=== PATIENT | male | born 1950 | race Caucasian/White ===

== ENCOUNTER 2018-04-24 13:08 | Observation (INO) | payer MEDICARE, BC ==
--- NOTE | 2018-04-24 13:25 | EDM.PDOC ---
ED HPI GENERAL MEDICAL PROBLEM - General Stated Complaint: SOB Time Seen by Provider: 04/24/18 13:08 Source of Information: Reports: Patient, Family History Limitations: Reports: Respiratory Distress back Pain Score (Numeric/FACES): 4 - Related Data Allergies Allergy/AdvReac Type Severity Reaction Status Date / Time cephalexin Allergy Hives Verified 04/24/18 13:21 enoxaparin [From Lovenox] Allergy Hives Verified 04/24/18 13:21 Home Meds: Home Meds Carvedilol [Coreg] 6.25 mg PO DAILY 07/07/16 [History] Ferrous Sulfate 65 mg PO BIDMEALS 07/07/16 [History] Metolazone 5 mg PO DAILY PRN 07/07/16 [History] [place]-3/DHA/Epa/Fish Oil [Fish Oil Dr 500 mg Softgel] 2,000 mg PO BID 07/07/16 [ History] Omeprazole 20 mg PO DAILY 07/07/16 [History] Warfarin Sodium 7.5 mg PO MOWEFRSA 07/07/16 [History] Aspirin 81 mg PO DAILY 10/23/16 [History] Citalopram [Citalopram HBr] 40 mg PO DAILY 10/23/16 [History] Clorazepate Dipotassium [Tranxene T-Tab] 7.5 mg PO BID PRN 10/23/16 [History] Cyclobenzaprine [Flexeril] 10 mg PO BID PRN 10/23/16 [History] Ibuprofen 800 mg PO TID PRN 10/23/16 [History] Multivitamin/Iron/Folic Acid [Centrum Complete Multivit] 1 each PO DAILY [History] Vitamin B Complex [B Complex] 1 tab PO BID 10/23/16 [History] Warfarin [Coumadin] 10 mg PO SUTUTH 10/23/16 [History] buPROPion HCl [Bupropion HCl Sr] 150 mg PO BEDTIME 10/23/16 [History] Magnesium Oxide 400 mg PO BID #60 tablet 10/24/16 [Rx] Acetaminophen/oxyCODONE [Percocet 325-5 MG] 1 tab PO DAILY PRN 04/24/18 [History ] Albuterol Sulfate [Proventil Hfa] 2 puff IH Q4H PRN 04/24/18 [History] Carboxymethylcellulose Sodium [Refresh Tears] 1 drop EYEBOTH ASDIRECTED PRN [History] Carvedilol [Coreg] 12.5 mg PO BEDTIME 04/24/18 [History] Cholecalciferol (Vitamin D3) [Vitamin D3] 1,000 unit PO BID 04/24/18 [History] Fish Oil/DHA/EPA [Fish Oil 1,200 MG] 1,200 mg PO BID 04/24/18 [History] Fluticasone/Salmeterol [Advair 250-50 Diskus] 1 each IH BID 04/24/18 [History] Glucosamine/D3/Boswellia Margot [Osteo Bi-Flex Caplet] 1 tab PO BID 04/24/18 [ History] Losartan [Cozaar] 25 mg PO DAILY 04/24/18 [History] Naloxone HCl [Narcan] 4 mg FDIEL ASDIRECTED PRN 04/24/18 [History] Potassium Chloride [Klor-Con M20] 40 meq PO BID@,14 04/24/18 [History] Rosuvastatin [Crestor] 20 mg PO DAILY 04/24/18 [History] Spironolactone [Aldactone] 25 mg PO DAILY 04/24/18 [History] Torsemide [Demadex] 80 mg PO BID@,14 04/24/18 [History] buPROPion [Wellbutrin SR] 300 mg PO DAILY 04/24/18 [History] fentaNYL [Fentanyl] 25 mcg TD Q3D 04/24/18 [History] valACYclovir HCl [valACYclovir] 1 gm PO ASDIRECTED PRN 04/24/18 [History] Acetaminophen/oxyCODONE [Percocet 325-5 MG] 1 tab PO Q4H PRN tablet 04/25/18 [ Rx] Albuterol/Ipratropium [DuoNeb 3.0-0.5 MG/3 ML] 3 ml NEB Q6H neb 04/25/18 [Rx] Sodium Chloride 0.9% [Saline Flush] 10 ml FLUSH ASDIRECTED PRN syringe [Rx] methylPREDNISolone Sod Succ [Solu-MEDROL] 80 mg IVPUSH Q8H sdv 04/25/18 [Rx] Past Medical History HEENT History: Reports: Impaired Vision Cardiovascular History: Reports: Hypertension Respiratory History: Reports: Asthma Genitourinary History: Reports: Other (See Below) Other Genitourinary History: prostate problem Musculoskeletal History: Reports: Back Pain, Chronic Psychiatric History: Reports: Anxiety, Depression Oncologic (Cancer) History: Reports: Squamous Cell Carcinoma - Past Surgical History Cardiovascular Surgical History: Reports: Other (See Below) Social & Family History - Family History Family Medical History: Noncontributory - Caffeine Use Caffeine Use: Reports: Coffee, Soda, Tea EKG INTERPRETATION EKG Date: 04/24/18 Time: 13:25 Rhythm: Other (ventricular paced) Rate (Beats/Min): 62 [place]: LAD-Left [place] Deviation P-Wave: Absent Comparison: NA - No Prior EKG EKG Interpretation Comments: 100% paced rhythm Course - Vital Signs Last Recorded V/S: Last Vital Signs Temp 36.4 C 04/25/18 08:00 Pulse 66 04/25/18 08:00 Resp 20 04/25/18 08:00 BP 114/67 04/25/18 08:00 Pulse Ox 95 04/25/18 08:00 - Orders/Labs/Meds Labs: Laboratory Tests 04/24/18 04/24/18 04/24/18 Range/Units 13:47 13:47 13:47 WBC 8.3 (4.5-12.0) X10-3/uL RBC 4.48 (4.30-5.75) x10(6)uL Hgb 14.6 D (11.5-15.5) g/dL Hct 42.7 (30.0-51.3) % MCV 95.4 (80-96) fL MCH 32.5 (27.7-33.6) pg MCHC 34.1 (32.2-35.4) g/dL RDW 13.9 (11.5-15.5) % Plt Count 109 L (125-369) X10(3)uL MPV 12.0 H (7.4-10.4) fL Neut % (Auto) 65.1 (46-82) % Lymph % (Auto) 25.2 (13-37) % [place] % (Auto) 7.5 (4-12) % Eos % (Auto) 1 (1.0-5.0) % Baso % (Auto) 1 (0-2) % Neut # (Auto) 5.4 (1.6-8.3) # Lymph # (Auto) 2.1 (0.6-5.0) # [place] # (Auto) 0.6 (0.0-1.3) # Eos # (Auto) 0.1 (0.0-0.8) # Baso # (Auto) 0.1 (0.0-0.2) # PT (8.7-11.1) INR (0.89-1.13) Sodium 131 L (135-145) mmol/L Potassium 3.5 (3.5-5.3) mmol/L Chloride 93 L (100-110) mmol/L Carbon Dioxide 30 (21-32) mmol/L BUN 42 H (7-18) mg/dL Creatinine 1.4 H (0.70-1.30) mg/dL Est Cr Clr Drug Dosing 52.87 mL/min Estimated GFR (MDRD) 51 L (>60) BUN/Creatinine Ratio 30.0 H (9-20) Glucose 101 (80-116) mg/dL Calcium 8.9 (8.6-10.2) mg/dL Troponin I < 0.017 L (<0.017-0.056) ng/mL NT-Pro-B Natriuret Pep 1022 H* (<=125) pg/mL 04/24/18 Range/Units 14:00 WBC (4.5-12.0) X10-3/uL RBC (4.30-5.75) x10(6)uL Hgb (11.5-15.5) g/dL Hct (30.0-51.3) % MCV (80-96) fL MCH (27.7-33.6) pg MCHC (32.2-35.4) g/dL RDW (11.5-15.5) % Plt Count (125-369) X10(3)uL MPV (7.4-10.4) fL Neut % (Auto) (46-82) % Lymph % (Auto) (13-37) % [place] % (Auto) (4-12) % Eos % (Auto) (1.0-5.0) % Baso % (Auto) (0-2) % Neut # (Auto) (1.6-8.3) # Lymph # (Auto) (0.6-5.0) # [place] # (Auto) (0.0-1.3) # Eos # (Auto) (0.0-0.8) # Baso # (Auto) (0.0-0.2) # PT 27.4 H (8.7-11.1) INR 2.85 H (0.89-1.13) Sodium (135-145) mmol/L Potassium (3.5-5.3) mmol/L Chloride (100-110) mmol/L Carbon Dioxide (21-32) mmol/L BUN (7-18) mg/dL Creatinine (0.70-1.30) mg/dL Est Cr Clr Drug Dosing mL/min Estimated GFR (MDRD) (>60) BUN/Creatinine Ratio (9-20) Glucose (80-116) mg/dL Calcium (8.6-10.2) mg/dL Troponin I (<0.017-0.056) ng/mL NT-Pro-B Natriuret Pep (<=125) pg/mL Meds: Medications Discontinued Medications Generic Name Dose Route Start Last Admin Trade Name Freq PRN Reason Stop Dose Admin Albuterol/Ipratropium 3 ml 04/24/18 13:36 04/24/18 13:44 Duoneb 3.0-0.5 Mg/3 Ml NEB 04/24/18 13:37 Not Given ONETIME ONE Albuterol/Ipratropium Confirm 04/24/18 13:37 04/24/18 13:44 Duoneb 3.0-0.5 Mg/3 Ml Administered 04/24/18 13:38 3 ml Dose Administration 3 ml .ROUTE .STK-MED ONE Albuterol/Ipratropium 3 ml 04/24/18 18:00 04/25/18 12:43 Duoneb 3.0-0.5 Mg/3 Ml NEB Not Given Q6H RAIN Furosemide 10 mg 04/24/18 14:36 04/24/18 14:52 Lasix IVPUSH 04/24/18 14:37 10 mg NOW ONE Administration Methylprednisolone Sodium Succinate 80 mg 04/24/18 18:00 04/25/18 10:13 Solu-Medrol IVPUSH 80 mg Q8H RAIN Administration Oxycodone/Acetaminophen 1 tab 04/24/18 18:25 04/24/18 23:53 Percocet 325-5 Mg PO 1 tab Q4H PRN Administration back pain Sodium Chloride 10 ml 04/24/18 14:36 04/25/18 10:16 Saline Flush FLUSH 10 ml ASDIRECTED PRN Administration Keep Vein Open Warfarin Sodium 5 mg 04/24/18 16:00 04/24/18 18:46 Coumadin PO Not Given DAILY@1600 RAIN Warfarin Sodium 7.5 mg 04/25/18 18:27 Coumadin PO 04/25/18 18:28 ONETIME ONE Warfarin Sodium 7.5 mg 04/24/18 19:09 04/24/18 20:00 Coumadin PO 04/24/18 19:10 7.5 mg ONETIME STA Administration Departure - Departure Disposition: Refer to Observation Clinical Impression: CHF (congestive heart failure) Qualifiers: Heart failure type: diastolic Heart failure chronicity: acute on chronic Qualified Code(s): I50.33 - Acute on chronic diastolic (congestive) heart failure - Discharge Information
[2018-04-24] MEDS ORDERED: Albuterol/Ipratropium 3.0-0.5 MG/3 ML Neb Soln NEB ONE (13:36)
[2018-04-24] MEDS ORDERED: Albuterol/Ipratropium 3.0-0.5 MG/3 ML Neb Soln ONE (13:37)
--- NOTE | 2018-04-24 13:37 | EDM.PDOC ---
ED HPI GENERAL MEDICAL PROBLEM - General Chief Complaint: Respiratory Problem Stated Complaint: SOB Time Seen by Provider: 04/24/18 13:08 Source of Information: Reports: Patient, Family History Limitations: Reports: Respiratory Distress - History of Present Illness INITIAL COMMENTS - FREE TEXT/NARRATIVE: 67 y.o.w.m with H/O right sided CHF, CAD wit Pac[place] placememnt, came to the ed due to worsening of SOB with mild exercise.No CP No N/V/D no dizziness. Pt was admitted for same in the past. Puse ox 91 % on RA BP 94/62 RR 22 Temp 36.8 Onset: Today Onset Date: 04/21/18 Onset Time: 08:00 Duration: Day(s):, Getting Worse, Intermittent Location: Reports: Chest Quality: Reports: Same as Previous Episode (SOB) Severity: Moderate Improves with: Reports: Rest Worsens with: Reports: Movement Associated Symptoms: Reports: Shortness of Breath Treatments [employer]: Reports: Other (see below) (Lasix) back Pain Score (Numeric/FACES): 4 - Related Data Allergies Allergy/AdvReac Type Severity Reaction Status Date / Time cephalexin Allergy Hives Verified 04/24/18 13:21 enoxaparin [From Lovenox] Allergy Hives Verified 04/24/18 13:21 Home Meds: Home Meds Carvedilol [Coreg] 6.25 mg PO DAILY 07/07/16 [History] Ferrous Sulfate 65 mg PO BIDMEALS 07/07/16 [History] Metolazone 5 mg PO DAILY PRN 07/07/16 [History] [place]-3/DHA/Epa/Fish Oil [Fish Oil Dr 500 mg Softgel] 2,000 mg PO BID 07/07/16 [ History] Omeprazole 20 mg PO DAILY 07/07/16 [History] Warfarin Sodium 7.5 mg PO MOWEFRSA 07/07/16 [History] Aspirin 81 mg PO DAILY 10/23/16 [History] Citalopram [Citalopram HBr] 40 mg PO DAILY 10/23/16 [History] Clorazepate Dipotassium [Tranxene T-Tab] 7.5 mg PO BID PRN 10/23/16 [History] Cyclobenzaprine [Flexeril] 10 mg PO BID PRN 10/23/16 [History] Ibuprofen 800 mg PO TID PRN 10/23/16 [History] Multivitamin/Iron/Folic Acid [Centrum Complete Multivit] 1 each PO DAILY [History] Vitamin B Complex [B Complex] 1 tab PO BID 10/23/16 [History] Warfarin [Coumadin] 10 mg PO SUTUTH 10/23/16 [History] buPROPion HCl [Bupropion HCl Sr] 150 mg PO BEDTIME 10/23/16 [History] Magnesium Oxide 400 mg PO BID #60 tablet 10/24/16 [Rx] Acetaminophen/oxyCODONE [Percocet 325-5 MG] 1 tab PO DAILY PRN 04/24/18 [History ] Albuterol Sulfate [Proventil Hfa] 2 puff IH Q4H PRN 04/24/18 [History] Carboxymethylcellulose Sodium [Refresh Tears] 1 drop EYEBOTH ASDIRECTED PRN [History] Carvedilol [Coreg] 12.5 mg PO BEDTIME 04/24/18 [History] Cholecalciferol (Vitamin D3) [Vitamin D3] 1,000 unit PO BID 04/24/18 [History] Fish Oil/DHA/EPA [Fish Oil 1,200 MG] 1,200 mg PO BID 04/24/18 [History] Fluticasone/Salmeterol [Advair 250-50 Diskus] 1 each IH BID 04/24/18 [History] Glucosamine/D3/Boswellia Margot [Osteo Bi-Flex Caplet] 1 tab PO BID 04/24/18 [ History] Losartan [Cozaar] 25 mg PO DAILY 04/24/18 [History] Naloxone HCl [Narcan] 4 mg FIDEL ASDIRECTED PRN 04/24/18 [History] Potassium Chloride [Klor-Con M20] 40 meq PO BID@,04/24/18 [History] Rosuvastatin [Crestor] 20 mg PO DAILY 04/24/18 [History] Spironolactone [Aldactone] 25 mg PO DAILY 04/24/18 [History] Torsemide [Demadex] 80 mg PO BID@08,14 04/24/18 [History] buPROPion [Wellbutrin SR] 300 mg PO DAILY 04/24/18 [History] fentaNYL [Fentanyl] 25 mcg TD Q3D 04/24/18 [History] valACYclovir HCl [valACYclovir] 1 gm PO ASDIRECTED PRN 04/24/18 [History] Acetaminophen/oxyCODONE [Percocet 325-5 MG] 1 tab PO Q4H PRN tablet 04/25/18 [ Rx] Albuterol/Ipratropium [DuoNeb 3.0-0.5 MG/3 ML] 3 ml NEB Q6H neb 04/25/18 [Rx] Sodium Chloride 0.9% [Saline Flush] 10 ml FLUSH ASDIRECTED PRN syringe [Rx] methylPREDNISolone Sod Succ [Solu-MEDROL] 80 mg IVPUSH Q8H sdv 04/25/18 [Rx] Past Medical History HEENT History: Reports: Impaired Vision Cardiovascular History: Reports: Hypertension Respiratory History: Reports: Asthma Genitourinary History: Reports: Other (See Below) Other Genitourinary History: prostate problem Musculoskeletal History: Reports: Back Pain, Chronic Psychiatric History: Reports: Anxiety, Depression Oncologic (Cancer) History: Reports: Squamous Cell Carcinoma - Past Surgical History Cardiovascular Surgical History: Reports: Other (See Below) Social & Family History - Family History Family Medical History: Noncontributory - Caffeine Use Caffeine Use: Reports: Coffee, Soda, Tea ED ROS GENERAL - Review of Systems Review Of Systems: See Below Constitutional: Reports: No Symptoms HEENT: Reports: No Symptoms Respiratory: Reports: Shortness of Breath Cardiovascular: Reports: No Symptoms, Dyspnea on Exertion, Orthopnea Endocrine: Reports: No Symptoms GI/Abdominal: Reports: No Symptoms : Reports: No Symptoms Musculoskeletal: Reports: No Symptoms Skin: Reports: No Symptoms Neurological: Reports: No Symptoms Psychiatric: Reports: No Symptoms Hematologic/Lymphatic: Reports: No Symptoms Immunologic: Reports: No Symptoms ED EXAM, GENERAL - Physical Exam Exam: See Below Exam Limited By: Respiratory Distress General Appearance: Alert, Moderate Distress, Obese Eye Exam: Bilateral Eye: Normal Inspection Ears: Normal External Exam Ear Exam: Bilateral Ear: Auricle Normal Nose: Normal Inspection, Normal Mucosa Throat/Mouth: Normal Inspection, Normal Lips, Normal Gums, Normal Voice, No Airway Compromise Head: Atraumatic, Normocephalic Neck: Normal Inspection, Supple, Non-Tender, Full Range of Motion Respiratory/Chest: Respiratory Distress, Decreased Breath Sounds, Crackles, Wheezing Cardiovascular: Normal Peripheral Pulses, Regular Rate, Rhythm, Other (!= bitting edema lower extremities) Peripheral Pulses: 1+: Carotid (R) GI/Abdominal: Normal Bowel Sounds (Male) Exam: Deferred Rectal (Males) Exam: Deferred Back Exam: Normal Inspection, Full Range of Motion Extremities: Normal Inspection, Normal Range of Motion, Non-Tender, No Pedal Edema Neurological: Alert, Oriented, CN II-XII Intact, Normal Cognition, Normal Gait, No Motor/Sensory Deficits Psychiatric: Normal Affect, Normal Mood Skin Exam: Warm, Dry, Intact, Normal Color, No Rash Lymphatic: No Adenopathy Course - Vital Signs Text/Narrative:: 67 y.o.w.m with H/O right sided CHF, CAD wit Paceme[place] placememnt, came to the ed due to worsening of SOB with mild exercise.No CP No N/V/D no dizziness. Pt was admitted for same in the past. Puse ox 91 % on RA BP 94/62 RR 22 Temp 36.8 PE: WNWD W M with SOB?CHF Imaging: CXR 1 view: CHF, mod: RAD Labs: BNP 1234 NA 131 K 3.5 BUN 42 Cr. 1.4 GFR 51 CBC nl Plt were 109K, however Impression: CHF Tx: Lasix, Duoneb, O2 by NA. 2.32 pm Consultation: Dr. Castorena, Hospitalist: Did not call back as of now Plan: Admit for observation Last Recorded V/S: Last Vital Signs Temp 36.4 C 04/25/18 08:00 Pulse 66 04/25/18 08:00 Resp 20 04/25/18 08:00 BP 114/67 04/25/18 08:00 Pulse Ox 95 04/25/18 08:00 - Orders/Labs/Meds Labs: Laboratory Tests 04/24/18 04/24/18 04/24/18 Range/Units 13:47 13:47 13:47 WBC 8.3 (4.5-12.0) X10-3/uL RBC 4.48 (4.30-5.75) x10(6)uL Hgb 14.6 D (11.5-15.5) g/dL Hct 42.7 (30.0-51.3) % MCV 95.4 (80-96) fL MCH 32.5 (27.7-33.6) pg MCHC 34.1 (32.2-35.4) g/dL RDW 13.9 (11.5-15.5) % Plt Count 109 L (125-369) X10(3)uL MPV 12.0 H (7.4-10.4) fL Neut % (Auto) 65.1 (46-82) % Lymph % (Auto) 25.2 (13-37) % [place] % (Auto) 7.5 (4-12) % Eos % (Auto) 1 (1.0-5.0) % Baso % (Auto) 1 (0-2) % Neut # (Auto) 5.4 (1.6-8.3) # Lymph # (Auto) 2.1 (0.6-5.0) # [place] # (Auto) 0.6 (0.0-1.3) # Eos # (Auto) 0.1 (0.0-0.8) # Baso # (Auto) 0.1 (0.0-0.2) # PT (8.7-11.1) INR (0.89-1.13) Sodium 131 L (135-145) mmol/L Potassium 3.5 (3.5-5.3) mmol/L Chloride 93 L (100-110) mmol/L Carbon Dioxide 30 (21-32) mmol/L BUN 42 H (7-18) mg/dL Creatinine 1.4 H (0.70-1.30) mg/dL Est Cr Clr Drug Dosing 52.87 mL/min Estimated GFR (MDRD) 51 L (>60) BUN/Creatinine Ratio 30.0 H (9-20) Glucose 101 (80-116) mg/dL Calcium 8.9 (8.6-10.2) mg/dL Troponin I < 0.017 L (<0.017-0.056) ng/mL NT-Pro-B Natriuret Pep 1022 H* (<=125) pg/mL 04/24/18 Range/Units 14:00 WBC (4.5-12.0) X10-3/uL RBC (4.30-5.75) x10(6)uL Hgb (11.5-15.5) g/dL Hct (30.0-51.3) % MCV (80-96) fL MCH (27.7-33.6) pg MCHC (32.2-35.4) g/dL RDW (11.5-15.5) % Plt Count (125-369) X10(3)uL MPV (7.4-10.4) fL Neut % (Auto) (46-82) % Lymph % (Auto) (13-37) % [place] % (Auto) (4-12) % Eos % (Auto) (1.0-5.0) % Baso % (Auto) (0-2) % Neut # (Auto) (1.6-8.3) # Lymph # (Auto) (0.6-5.0) # [place] # (Auto) (0.0-1.3) # Eos # (Auto) (0.0-0.8) # Baso # (Auto) (0.0-0.2) # PT 27.4 H (8.7-11.1) INR 2.85 H (0.89-1.13) Sodium (135-145) mmol/L Potassium (3.5-5.3) mmol/L Chloride (100-110) mmol/L Carbon Dioxide (21-32) mmol/L BUN (7-18) mg/dL Creatinine (0.70-1.30) mg/dL Est Cr Clr Drug Dosing mL/min Estimated GFR (MDRD) (>60) BUN/Creatinine Ratio (9-20) Glucose (80-116) mg/dL Calcium (8.6-10.2) mg/dL Troponin I (<0.017-0.056) ng/mL NT-Pro-B Natriuret Pep (<=125) pg/mL Meds: Medications Discontinued Medications Generic Name Dose Route Start Last Admin Trade Name Freq PRN Reason Stop Dose Admin Albuterol/Ipratropium 3 ml 04/24/18 13:36 04/24/18 13:44 Duoneb 3.0-0.5 Mg/3 Ml NEB 04/24/18 13:37 Not Given ONETIME ONE Albuterol/Ipratropium Confirm 04/24/18 13:37 04/24/18 13:44 Duoneb 3.0-0.5 Mg/3 Ml Administered 04/24/18 13:38 3 ml Dose Administration 3 ml .ROUTE .STK-MED ONE Albuterol/Ipratropium 3 ml 04/24/18 18:00 04/25/18 12:43 Duoneb 3.0-0.5 Mg/3 Ml NEB Not Given Q6H RAIN Furosemide 10 mg 04/24/18 14:36 04/24/18 14:52 Lasix IVPUSH 04/24/18 14:37 10 mg NOW ONE Administration Methylprednisolone Sodium Succinate 80 mg 04/24/18 18:00 04/25/18 10:13 Solu-Medrol IVPUSH 80 mg Q8H RAIN Administration Oxycodone/Acetaminophen 1 tab 04/24/18 18:25 04/24/18 23:53 Percocet 325-5 Mg PO 1 tab Q4H PRN Administration back pain Sodium Chloride 10 ml 04/24/18 14:36 04/25/18 10:16 Saline Flush FLUSH 10 ml ASDIRECTED PRN Administration Keep Vein Open Warfarin Sodium 5 mg 04/24/18 16:00 04/24/18 18:46 Coumadin PO Not Given DAILY@1600 RAIN Warfarin Sodium 7.5 mg 04/25/18 18:27 Coumadin PO 04/25/18 18:28 ONETIME ONE Warfarin Sodium 7.5 mg 04/24/18 19:09 04/24/18 20:00 Coumadin PO 04/24/18 19:10 7.5 mg ONETIME STA Administration Departure - Departure Time of Disposition: 14:34 Disposition: Refer to Observation Condition: Fair Clinical Impression: CHF (congestive heart failure) Qualifiers: Heart failure type: diastolic Heart failure chronicity: acute on chronic Qualified Code(s): I50.33 - Acute on chronic diastolic (congestive) heart failure - Discharge Information
[2018-04-24] MEDS ORDERED: Furosemide 40 MG/4 ML VIAL IVPUSH ONE (14:36)
--- NOTE | 2018-04-24 15:13 | CR ---
INDICATION: Short of breath. CHEST: An AP portable upright view of the chest was obtained 04/24/2108 and compared with 10/23/2016 and 07/07/2016, again revealing evidence of previous median sternotomy with the heart enlarged in size and appearance. Stimulator lead and single pole pacemaker lead noted in place. There appears to be mitral valvular replacement. Upper lung field pulmonary vasculature appears slightly prominent, suggesting mild CHF. No definite pneumonia is seen. There are some fibrotic appearing changes in the lung bases, making it difficult to entirely exclude minimal patchy bronchopneumonia, however. IMPRESSION: ASHD, cardiomegaly, post mitral valve replacement with mild CHF suggested, possibly on a chronic basis. Report was given in person to Dr. Shields at approximately 1420 hours on 2017. [facility]
[2018-04-24] MEDS ORDERED: Warfarin 5 MG Tab PO SCH (16:00)
[2018-04-24] MEDS: Acetaminophen/oxyCODONE 325-5 MG Tab PO PRN ×2 (18:50→23:53)
[2018-04-24] MEDS: Albuterol/Ipratropium 3.0-0.5 MG/3 ML Neb Soln NEB SCH ×2 (18:51→23:47)
[2018-04-24] MEDS: methylPREDNISolone Sodium Succinate 125 MG/2 ML SDV IVPUSH SCH (18:51)
[2018-04-24] MEDS: Sodium Chloride 0.9% 10 ML Syringe FLUSH PRN (18:52)
[2018-04-24] MEDS ORDERED: Warfarin 2.5 MG Tab PO STA (19:09)
[2018-04-25] MEDS: methylPREDNISolone Sodium Succinate 125 MG/2 ML SDV IVPUSH SCH ×2 (02:34→10:13)
[2018-04-25] MEDS: Sodium Chloride 0.9% 10 ML Syringe FLUSH PRN ×2 (02:46→10:16)
[2018-04-25] MEDS: Albuterol/Ipratropium 3.0-0.5 MG/3 ML Neb Soln NEB SCH ×2 (06:50→12:43)
[2018-04-25 09:35] VITALS: BP 114/67
--- NOTE | 2018-04-25 18:14 | HP ---
ADMISSION DATE: 04/24/2018 REASON FOR VISIT: Respiratory difficulty. HISTORY: Homar Byrd is a 67-year-old, male who was seen at [facility] bed in good health. Night prior to admission, he had been out doing lots of wood work, standing, and activity, respirator intermittently used. Increasing respiratory difficulty, complicated cough with absence of sputum, and no other infectious related symptoms. He was seen at [facility] with cough, cold, respiratory difficulty, and a sense of reduced well-being. Chest x-ray revealed cardiomegaly but no signs of complicating congestive heart failure. Longstanding history of heart disease, coronary artery bypass, angioplasty, electrical ablation, and pacemaker placement. MEDICATIONS: Home medications include; 1. Percocet 1 p.o. q.i.d. p.r.n. for pain. 2. Albuterol inhaler 2 puffs q.i.d. p.r.n. breathing. 3. ASA 81 mg 1 p.o. daily for CAD prevention. 4. Wellbutrin SR 150 2 daily, mood stabilizer. 5. Bupropion 450 mg in divided doses. 6. Carvedilol 6.25 mg daily, q.a.m., 12.5 mg at bedtime. 7. Vitamin D 1000 units b.i.d. nutrition. 8. Citalopram 40 mg 1 p.o. daily, mood stabilizer. 9. Clorazepate generic Tranxene 7.5 mg b.i.d. mood stabilizer. 10.Flexeril 10 mg one p.o. daily muscle relaxant. 11.Fentanyl patch 25 mcg q.3 days duration. 12.Ferrous sulfate 650 1 p.o. b.i.d. anemia. 13.Fish oil one daily. 14.Advair 250/50 one puff b.i.d. 15.Glucosamine chondroitin 1 p.o. b.i.d. 16.Ibuprofen 800 mg 1 p.o. t.i.d. p.r.n. for pain. 17.Losartan 25 mg 1 p.o. daily hypertension. 18.Magnesium 400 mg b.i.d. nutrition. 19.Metolazone 5 mg one p.o. b.i.d. 20.Multivitamin 1 daily. 21.[place]-3 2 daily nutrition. 22.Prilosec 20 mg one p.o. daily GERD. 23.Potassium chloride 40 mg p.o. b.i.d. hypokalemia .. 24.Crestor 20 mg p.o. daily hyperlipidemia. 25.Spironolactone 25 mg one daily. 26.Torsemide 80 mg b.i.d. fluid. 27.P.r.n. Valtrex. 28.Vitamin B complex. 29.Warfarin at prescribed doses. ALLERGIES: Allergic to cephalexin with hives, enoxaparin with hives. PAST MEDICAL HISTORY: Significant for bowel or herniorrhaphy, right eye trabeculectomy, lumbar back surgery with diskectomy at L4-L5, cardiac catheterization, coronary bypass surgery, angiography and pacemaker placement. Chronic illnesses include coronary artery disease, hypertension, hyperlipidemia and mood disorder. SOCIAL HISTORY: Retired. State of origin of [place]. 68, good health, 2 daughters, 4 grandchildren. Quit smoking in 2012. Quit tobacco a year or so ago. No alcohol consumption. REVIEW OF SYSTEMS: CONSTITUTIONAL: Feeling well otherwise. HEENT: Sees well. Hearing is a bit conflictual. Intact dentition. ABDOMEN: Bowels have been fine. Bladder has been fine. Nocturia x1. No blood in stools. No blood in urine. CARDIOVASCULAR: Please see HIP. RESPIRATORY: Please see HPI. ORTHOPEDIC: Generalized joint complaints. ENDOCRINE: No excessive thirst, urination. ALLERGY: No chronic cough, wheeze, or congestion, atopic disease, mood stable. PHYSICAL EXAMINATION: VITAL SIGNS: Stable. 35.7, 110/64, 78, 18, 98% on room air. GENERAL: Appears comfortable. A little shortness of breath with activity. HEENT: Funduscopic benign. Conjunctivae clear. Bright tympanic membranes. Decreased hearing. Clear nasal discharge. Mouth and oropharynx clear. Fair dentition. Tongue midline. Good gag reflex. NECK: Benign. Thyroid small. No adenopathy. No carotid bruits. CHEST: Decreased breath sounds. Some coarse rhonchi. Wheezes throughout. HEART: Occasional ectopy. Murmur in left sternal border. Pacemaker in left upper chest present. ABDOMEN: Benign. Surgical scars well healed. AND RECTAL: Deferred. EXTREMITIES: Well perfused. Moderate edema. Peripheral pulses intact. LABORATORY STUDIES: White count 8300, hemoglobin 14.6, hematocrit 42.7. INR 2.5. Sodium 131, chloride 93, potassium 3.5, BNP 1022. Troponin basically 0. ASSESSMENT: Acute exacerbation of respiratory compromise. No signs of congestive heart failure, pneumonia or infection. PLAN: Aggressive RT treatment. Intravenous steroids, supplemental care and treatment, expectations for short-term stay. /[id number] ELIA/TERRY
[2018-04-25] MEDS ORDERED: Warfarin 2.5 MG Tab PO ONE (18:27)
--- NOTE | 2018-04-26 09:11 | DISCH ---
DISCHARGE DATE: 04/25/2018 HOSPITAL COURSE: Homar Byrd is a 67-year-old gentleman, who presented with acute respiratory distress, irritant inhalant in nature. Started doing woodworking in shop. Home therapy, little benefit. Upon admission, he was in moderate distress. Supplemental O2, aggressive RT treatment was required. Laboratory studies were performed. Chest x-ray revealed cardiomegaly, but no major pathology. Hospital stay, was given intravenous fluids, intravenous corticosteroids, aggressive hydration, a single dose of IV Lasix with good diuresis and clinical response. On the morning of discharge, was markedly better. PHYSICAL EXAMINATION: VITAL SIGNS: 36.4, 114/67, 20, 95%. GENERAL: Much more comfortable. Respirations are easy. NECK: Benign. Thyroid small. CHEST: Better air exchange throughout all lung barba. Decreased breath sounds at both bases. HEART: Distant heart sounds with occasional ectopy, soft murmur appreciated. ABDOMEN: Benign. IMPRESSION: Acute respiratory distress, improved. PLAN: Discharged home. Medrol Dosepak. Complementary care and well being. Discharged on home medications with the addition of Medrol Dosepak. Intervention and care as appropriate. ADDENDUM: 30 minutes discharge exam and discharge planning. /[id number] ELIA/TERRY
== END 2018-04-25 12:05 | disposition home or self-care (01) ==
LOC: FB.ED 13:08 → FB.MS 14:39 → UNDOADMOB 14:46 → FB.MS 14:46
PROVIDERS: ADMIT Family Medicine; ATTEND Family Medicine
DX: R06.03 Acute respiratory distress (principal); I11.0 Hypertensive heart disease with heart failure; I50.33 Acute on chronic diastolic (congestive) heart failure; J45.909 Unspecified asthma, uncomplicated; E78.5 Hyperlipidemia, unspecified; I25.10 Atherosclerotic heart disease of native coronary artery without angina pectoris; F41.9 Anxiety disorder, unspecified; F32.9 Major depressive disorder, single episode, unspecified; Z87.891 Personal history of nicotine dependence; Z79.82 Long term (current) use of aspirin; Z79.01 Long term (current) use of anticoagulants; Z79.899 Other long term (current) drug therapy; Z95.0 Presence of cardiac pacemaker; Z95.1 Presence of aortocoronary bypass graft; Z88.1 Allergy status to other antibiotic agents; Z88.8 Allergy status to other drugs, medicaments and biological substances
CPT/HCPCS: 36415; 71045; 80048; 83880; 84484; 85025; 85610; 93005; 94640; 96374; 99284; 99285; A9270-GY; J1940; J2930; J7050; J7620